=== PATIENT | female | born 1985 | race Caucasian/White ===

== ENCOUNTER 2018-12-27 05:30 | Day surgery (SDC) | payer MEDICAID ==
[~2018-12-27] VITALS: Ht 165.1 cm; Wt 99.8 kg
[~2018-12-27 05:30] MED LIST: ABILIFY PO
[2018-12-27] MEDS ORDERED: SODIUM CHLORIDE 0.9% 1000ML 1,000 ML IV ONE (05:59)
[2018-12-27 06:12] VITALS: BP 118/76
[2018-12-27] MEDS ORDERED: SENN8.6T32 PO (06:23)
[2018-12-27] MEDS ORDERED: ESZO3TAB39 PO (06:23)
[2018-12-27] MEDS ORDERED: OMEP40CA37 PO (06:23)
[2018-12-27] MEDS ORDERED: ATOM80CA3 PO (06:23)
[2018-12-27] MEDS ORDERED: HYDR-3422 PO (06:23)
[2018-12-27] MEDS ORDERED: PROPOFOL 10 MG/ML 20ML VIAL IV ONE (07:06)
[2018-12-27] MEDS ORDERED: LIDOCAINE HCL 2% 20ML ONE (07:06)
[2018-12-27 07:26] VITALS: BP 90/60
[2018-12-27 07:31] VITALS: BP 107/72
[2018-12-27 07:38] VITALS: BP 106/72
[2018-12-27 07:42] VITALS: BP 108/62
== END 2018-12-27 08:05 | disposition home or self-care (01) ==
LOC: ENDO 05:30 → DAH 05:30 → ENDO 08:05
PROVIDERS: ATTEND Internal Medicine
DX: K64.0 First degree hemorrhoids (principal); R19.4 Change in bowel habit; Z98.49 Cataract extraction status, unspecified eye; F32.9 Major depressive disorder, single episode, unspecified; F41.9 Anxiety disorder, unspecified; F20.9 Schizophrenia, unspecified; Z68.37 Body mass index [BMI] 37.0-37.9, adult; Z79.899 Other long term (current) drug therapy; Z98.890 Other specified postprocedural states
CPT/HCPCS: 36415; 45380; 84703; 88305; A4606; J2704; J3490; J7030